=== PATIENT | male | born 1970 | race Caucasian/White ===

== ENCOUNTER 2025-06-29 06:20 | Day surgery (SDC) | payer OTHER, SELFPAY | END 2025-06-29 11:26 | disposition home or self-care (01) | LOC: GI 06:20 | PROVIDERS: ATTENDING PHYSICIAN Internal Medicine | DX: Z12.11 Encounter for screening for malignant neoplasm of colon (principal); K64.9 Unspecified hemorrhoids; D12.8 Benign neoplasm of rectum; K63.5 Polyp of colon | CPT/HCPCS: 45385; 45380; 88305 ==